=== PATIENT | male | born 1940 | race African-American/Black ===

== ENCOUNTER 2017-12-25 13:31 | Emergency (ER) | payer MEDICARE, OTHER ==
[~2017-12-25] VITALS: Ht 177.8 cm; Wt 90.7 kg
[2017-12-25 13:29] VITALS: BP 0/0
--- NOTE | 2017-12-25 13:48 | Emergency Room Report ---
History of Present Illness General Chief Complaint: CPR Source: EMS Present Illness HPI 77-year-old male with some kind of cancer presented to EMS for generalized weakness and syncope However 1 they arrived at patient's on patient passed out and lost consciousness and lost pulses as well They started CPR, gave 3 rounds of epi 1 round of atropine, what they reported was a bradycardic arrest with PE A the entire time No ROSC by the time patient arrived here so we continued compressions, and I intubated the patient, we continued CPR, I gave him calcium gluconate, sodium bicarbonate, 3 further rounds of epinephrine, all without success. He remained in PEA followed by asystole. He never developed a shockable rhythm, and he actually had pupils fixed and dilated prior to arrival. His was called in the ER, please see code sheet for details Allergies: Coded Allergies: No Known Allergies (Unverified , 12/25/17) Patient History Limited by: medical condition Reviewed Nursing Documentation: PMH: Agreed; PSxH: Agreed Nursing Documentation-PMH Past Medical History: No History, Except For Hx Cancer: Yes Review of Systems All Other Systems: limited Physical Exam Vital Signs Date Time Temp Pulse Resp B/P (MAP) Pulse Ox O2 Delivery O2 Flow Rate FiO2 12/25/17 13:00 30 12/25/17 13:00 80/50 Sp02 EP Interpretation: abnormal General Appearance: Stupor Head: normocephalic Eyes: bilateral eye other - Fixed and dilated pupils bilaterally ENT: normal ENT inspection Neck: normal inspection Respiratory: other - Good breath soundsWith bag mask ventilation Gastrointestinal: non-distended, other - Right lower quadrant ostomy Musculoskeletal: normal inspection Neurologic: other - GCS 3 Skin: normal inspection Medical Decision Making Last Vital Signs Date Time Temp Pulse Resp B/P (MAP) Pulse Ox O2 Delivery O2 Flow Rate FiO2 12/25/17 13:32 0 0 12/25/17 13:29 0/0 0 ROBERTO THOMPSON M.D Dec 25, 2017 13:48
[2017-12-25] MEDS ORDERED: Sodium Bicarbonate 50ml Carp ONE (14:27)
[2017-12-25 19:35] VITALS: BP 0/0
== END 2017-12-25 14:30 | disposition expired ==
LOC: EDBD 13:31 → EMR 14:26
DX: I46.9 Cardiac arrest, cause unspecified (principal); R53.1 Weakness; R55 Syncope and collapse; Z85.9 Personal history of malignant neoplasm, unspecified
CPT/HCPCS: 31500; 92950; 99285; J0171